=== PATIENT | female | born 1990 | race Caucasian/White ===

== ENCOUNTER 2020-10-31 05:34 | Inpatient (IN) ==
[2020-10-31] MEDS ORDERED: CITRIC ACID/SODIUM CITRATE 30 ML UDCUP PO ONE (06:28)
[2020-10-31] MEDS ORDERED: LACTATED RINGERS 1,000 ML IV SCH ×2 (06:30→07:30)
[2020-10-31 06:56] LABS: Basophils # 0.1 10*3/uL (0.0-0.2); Basophils % 0.4 % (0.0-0.8); Eosinophils # 0.2 10*3/uL (0.0-0.87); Eosinophils % 1.3 % (0.00-10.9); Hematocrit 35.7 VOL% (35.7-47.0); Hemoglobin 11.6 GM/DL (12.0-16.0); Immature Granulocytes % 1.1 %; Immature Granulocytes Absolute 0.13 #; Lymphocytes # 2.5 10*3/uL (1.4-4.0); Lymphocytes % 21.6 % (21.3-54.2); Mean Corpuscular HGB Conc 32.5 GM/DL (32-36); Mean Corpuscular Volume 82.6 FL (87-102); Neutrophils % 66.6 % (38.7-73.9); Platelet Count 374 T/CUMM (130-400); Red Blood Count 4.32 MC/CUMM (3.8-5.5); Red Cell Distribution Width 12.9 % (9.3-17.3); White Blood Count 11.6 T/CUMM (4-12)
[2020-10-31] MEDS ORDERED: OXYTOCIN/LR 20 UNIT/1,000 ML BAG IV ONE ×2 (06:59→10:00)
[2020-10-31] MEDS ORDERED: ceFAZolin 3,000 MG in SYRINGE 1 EACH IV ONE ×2 (07:00→08:09)
[2020-10-31] MEDS ORDERED: ePHEDrine 50 MG/ML VIAL IV PRN (07:05)
[2020-10-31] MEDS ORDERED: hydrOXYzine HCL 25 MG/1 ML VIAL IM PRN (07:05)
[2020-10-31] MEDS ORDERED: FAMOTIDINE 20 MG/2 ML VIAL IV ONE (07:05)
[2020-10-31] MEDS ORDERED: ONDANSETRON 4 MG/2 ML VIAL IV ONE (07:05)
[2020-10-31] MEDS ORDERED: LACTATED RINGERS 250 ML IV PRN (07:05)
[2020-10-31] MEDS ORDERED: PROMETHAZINE 25 MG/1 ML VIAL IM PRN (07:05)
[2020-10-31 07:07] LABS: INR 0.9; PT Patient Result 10.1 SECS (10.5-12.0)
[2020-10-31 07:16] LABS: Alanine Aminotransferase 128 U/L (13-56); Albumin 2.7 G/DL (3.4-5.0); Alkaline Phosphatase 243 U/L (45-117); Aspartate Amino Transferase 48 U/L (0-37); Bilirubin,Total < 0.39 MG/DL (0.2-1.0); Blood Urea Nitrogen 11 MG/DL (7-18); Calcium 9.1 MG/DL (8.5-10.1); Carbon Dioxide 22 MMOL/L (21-32); Estimated Glom Filtration Rate 139 ML/MIN; Glucose 86 MG/DL (74-106); Osmolality,Calculated 270.8 MOS/KG (273-304); Potassium 4.2 MMOL/L (3.5-5.1); Sodium 137 MMOL/L (136-145); Total Protein 6.9 G/DL (6.4-8.2)
[2020-10-31] MEDS ORDERED: PHENYLEPHRINE 10 MG/1 ML VIAL IV ONE (07:25)
[2020-10-31] MEDS ORDERED: BUPIVACAINE SPINAL 0.75% 2 ML AMP SPINAL ONE (07:25)
[2020-10-31] MEDS ORDERED: ONDANSETRON 4 MG/2 ML VIAL ONE (07:25)
[2020-10-31] MEDS ORDERED: miSOPROStoL 200 MCG TABLET ONE (07:47)
[2020-10-31] MEDS ORDERED: TRANEXAMIC ACID 1,000 MG/10 ML VIAL ONE (07:48)
[2020-10-31] MEDS ORDERED: CARBOPROST TROMETHAMINE 250 MCG/ML AMP IM ONE (07:48)
[2020-10-31] MEDS ORDERED: ACETAMINOPHEN INJ 1,000 MG/100 ML VIAL IV ONE (08:53)
[2020-10-31] MEDS ORDERED: LACTATED RINGERS 1,000 ML IV ONE (09:09)
[2020-10-31 09:26] LABS: Bilirubin,Urine Negative (Negative); Blood, Urine Negative (Negative); Glucose,Urine (UA) Negative (Negative); Ketones,Urine Negative (Negative); Mucus,Urine Occasional /LPF (Occasional); Nitrite,Urine Negative (Negative); Protein,Urine Negative; Squamous Epithelial Cell,Urine Occasional /HPF (0-10); Urine Appearance CLEAR (Clear); Urine Color Yellow (Yellow); Urine Specific Gravity 1.016 (1.001-1.035); Urine Urobilinogen < 2.0 EU/DL (0.2-1.0)
[2020-10-31 09:30] LABS: Cord Venous Blood HCO3 25.5 MMOL/L; Cord Venous Blood PCO2 47.3 MMHG; Cord Venous Blood PO2 29.9 MMHG
[2020-10-31] MEDS ORDERED: BENZOCAINE 20%/MENTHOL 0.5% SPRAY 56 GM CAN TOP PRN (10:00)
[2020-10-31] MEDS ORDERED: LANOLIN 50% CREAM 0.3 OZ TUBE TOP PRN (10:00)
[2020-10-31] MEDS ORDERED: HYDROCORTISONE 2.5% RECTAL CREAM 30 GM TUBE TOP PRN (10:00)
[2020-10-31] MEDS ORDERED: ONDANSETRON 4 MG/2 ML VIAL IV PRN (10:00)
[2020-10-31] MEDS ORDERED: BISACODYL 10 MG SUPP RECTAL PRN (10:00)
[2020-10-31] MEDS ORDERED: MEASLES/MUMPS/RUBELLA VACCINE 0.5 ML VIAL SUBCUT ONE (10:00)
[2020-10-31] MEDS ORDERED: ACETAMINOPHEN 325 MG TABLET PO PRN (10:00)
[2020-10-31] MEDS ORDERED: DIPH/TET/ACEL PERT BOOSTER VACCINE 0.5 ML VIAL IM ONE (10:00)
[2020-10-31] MEDS ORDERED: WITCH HAZEL PADS 100/JAR TOP PRN (10:00)
[2020-10-31] MEDS ORDERED: RHO(D) IMMUNE GLOBULIN 300 MCG SYRINGE IM ONE (10:00)
[2020-10-31] MEDS: oxyCODONE/ACETAMINOPHEN 5-325 MG TABLET PO PRN (13:44)
[2020-10-31] MEDS: IBUPROFEN 800 MG TABLET PO PRN (13:45)
[2020-10-31] MEDS: LABETALOL 200 MG TABLET PO SCH ×2 (15:06→21:03)
[2020-10-31] MEDS: DOCUSATE SODIUM 100 MG CAPSULE PO SCH (21:07)
[2020-11-01] MEDS: oxyCODONE/ACETAMINOPHEN 5-325 MG TABLET PO PRN ×2 (03:51→16:11)
[2020-11-01 06:20] LABS: Basophils % 0.4 % (0.0-0.8); Eosinophils # 0.2 10*3/uL (0.0-0.87); Eosinophils % 1.8 % (0.00-10.9); Hematocrit 33.1 VOL% (35.7-47.0); Hemoglobin 11.1 GM/DL (12.0-16.0); Immature Granulocytes % 1.1 %; Immature Granulocytes Absolute 0.12 #; Lymphocytes # 2.4 10*3/uL (1.4-4.0); Mean Corpuscular HGB Conc 33.5 GM/DL (32-36); Mean Corpuscular Volume 82.1 FL (87-102); Mean Platelet Volume 9.8 FL (9.6-12.0); Monocytes % 9.9 % (1.7-12.7); Neutrophils % 64.8 % (38.7-73.9); Platelet Count 307 T/CUMM (130-400); Red Blood Count 4.03 MC/CUMM (3.8-5.5); White Blood Count 10.9 T/CUMM (4-12)
[2020-11-01] MEDS: DOCUSATE SODIUM 100 MG CAPSULE PO SCH ×2 (08:43→22:13)
[2020-11-01] MEDS: LABETALOL 200 MG TABLET PO SCH ×3 (08:44→22:13)
[2020-11-01] MEDS: MAGNESIUM HYDROXIDE SUSP 30 ML UDCUP PO PRN ×2 (08:45→22:13)
[2020-11-01] MEDS ORDERED: KETOROLAC 30 MG/1 ML VIAL IV ONE (08:46)
[2020-11-02] MEDS: IBUPROFEN 800 MG TABLET PO PRN (05:47)
[2020-11-02] MEDS: oxyCODONE/ACETAMINOPHEN 5-325 MG TABLET PO PRN (05:47)
[2020-11-02] MEDS: DOCUSATE SODIUM 100 MG CAPSULE PO SCH (08:58)
[2020-11-02] MEDS: LABETALOL 200 MG TABLET PO SCH (08:58)
[2020-11-02 09:11] VITALS: BP 138/73
== END 2020-11-02 12:40 | disposition home or self-care (01) | DRG 788 ==
LOC: N.LD 05:34 → N.OB 13:15
PROVIDERS: ADMIT Specialist; ATTEND Specialist
PROC: LDCSECT (ICD-10-PCS; 2020-10-31 08:30)